=== PATIENT | female | born 1955 | race Caucasian/White ===

== ENCOUNTER 2018-01-13 21:14 | Observation (INO) | payer OTHER ==
[~2018-01-13] VITALS: Ht 167.6 cm; Wt 87.1 kg
[~2018-01-13 21:14] MED LIST: CHOL200021 PO; LEVO100T95 PO; LEVO112T83 PO; LORA-629 PO; OMEG-11 PO; SIMV-49 PO
[2018-01-13] MEDS ORDERED: HYDR-2966 PO (21:20)
--- NOTE | 2018-01-13 21:23 | ER Report ---
History and Physical Time Seen By MD: 21:23 Hx. of Stated Complaint: fell down the stairs, facial trauma HPI/ROS CHIEF COMPLAINT: Facial injury, fall HISTORY OF PRESENT ILLNESS: 62-year-old female fell on the steps coming out of [place]. She face planted on concrete steps. She was wearing glasses. She has a large laceration across the bridge of her nose extending into the right cheek area. Patient denies LOC. Patient denies alcohol ingestion. Patient notes a mild neck pain. Patient denies chest pain, shortness of breath or extremity injury. She has a small abrasion on her left leg and a bruise on her left lange. Patient's last tetanus shot is greater than 10 years. REVIEW OF SYSTEMS: Respiratory: No cough, no dyspnea. Cardiovascular: No chest pain, no palpitations. Gastrointestinal: No vomiting, no abdominal pain. Musculoskeletal: No back pain. Allergies: Coded Allergies: No Known Allergies (Verified Allergy, Mild, 01/13/18) Home Meds Reported Medications Hydrochlorothiazide (HYDROCHLOROTHIAZIDE) 25 Mg Tablet, 1 TAB PO QDAY, TAB 01/13/18 [place]-3 Fatty Acids/Fish Oil (FISH OIL 1,000 MG CAPSULE) 1 Each Capsule, 1 EACH PO QDAY, CAPSULE 07/06/17 Cholecalciferol (Vitamin D3) (VITAMIN D) 2,000 Unit Capsule, 2000 UNIT PO QDAY, CAPSULE 06/13/17 Simvastatin (SIMVASTATIN) 20 Mg Tablet, 20 MG PO HS, TAB 06/13/17 Levothyroxine Sodium (LEVOXYL) 112 Mcg Tablet, 112 MCG PO QDAY, TAB 06/13/17 Discontinued Reported Medications Loratadine (LORATADINE) 10 Mg Tablet, 10 MG PO QDAY 06/13/17 Past Medical/Surgical History Hypertension, hypercholesterolemia, hypothyroidism Reviewed Nurses Notes: Yes Old Medical Records Reviewed: Yes Hx Smoking: No Smoking Status: Never Smoker Constitutional Vital Sign - Last 24 Hours 01/13/18 01/13/18 01/13/18 01/13/18 21:16 21:17 21:29 23:03 Temp 98.0 Pulse 75 72 Resp 18 B/P (MAP) 157/96 157/96 (116) 140/81 (100) Pulse Ox 95 98 O2 Delivery Room Air 01/13/18 01/13/18 01/13/18 01/13/18 23:08 23:23 23:38 23:53 Pulse 86 79 83 82 Pulse Ox 94 96 94 95 01/13/18 23:58 Pulse 86 Pulse Ox 91 Physical Exam General Appearance: The patient is alert, has no immediate need for airway protection and no signs of toxicity. Palpation of the head and neck reveal no tenderness or trauma. There is gross facial trauma across the bridge of the nose. The large contusion and epistaxis. Eyes: Pupils equal and round no pallor or injection. EOMI, PERRLA ENT, Mouth: Mucous membranes are moist. No dental trauma Respiratory: There are no retractions, lungs are clear to auscultation. No chest wall tenderness Cardiovascular: Regular rate and rhythm. Gastrointestinal: Abdomen is soft and non tender, no masses, bowel sounds normal. Neurological: Alert and oriented 3, cranial nerves II through XII intact motor 5/5 imagery intelligence, sensory intact to light touch 4 Skin: Warm and dry, no rashes. Musculoskeletal: Neck is supple non tender. Mild tenderness in the paraspinous musculature, no tenderness in the midline Extremities are nontender, nonswollen and have full range of motion. There is a bruise to the mid lange area and there is a superficial abrasion just below the knee. On the left leg DIFFERENTIAL DIAGNOSIS: After history and physical exam differential diagnosis was considered for fall in the elderly including but not limited to intracranial injury, long bone and pelvic bone fracture, spinal injury, and intrathoracic injury. Medical Decision Making EKG/Imaging Imaging Results: CT scan of the head was obtained. The results of the study are EXAMINATION: Head CT without intravenous contrast History: Fall TECHNIQUE: Contiguous axial images were obtained from the skull base to the vertex without intravenous contrast. One of the following dose optimization techniques was utilized in the performance of this exam: Automated exposure control; adjustment of the mA and/or kV according to the patient's size; or use of an iterative reconstruction technique. Specific details can be referenced in the facility's radiology CT exam operational policy. COMPARISON STUDIES: none FINDINGS: Visualized mastoid air cells / paranasal sinuses: Please see CT facial bones. Calvarium and scalp: negative White matter: negative Dural venous sinuses / arterial structures: negative Ventricles / sulci / fissures: negative Masses / hemorrhage / midline shift: negative Extra-axial spaces: negative IMPRESSION: No evidence of skull fracture or intracranial pathology. Please see CT facial bones for additional findings. The study was read by the radiologist. I viewed the images myself on the PACS system. Results: CT scan of the cervical spine without contrast was obtained. The results of the study are EXAMINATION: Cervical spine CT History: 12 COMPARISON STUDIES: none TECHNIQUE: Axial images were obtained through the cervical spine without IV contrast administration. Coronal and sagittal reformatted images were obtained from the axial source data. One of the following dose optimization techniques was utilized in the performance of this exam: Automated exposure control; adjustment of the mA and/or kV according to the patient's size; or use of an iterative reconstruction technique. Specific details can be referenced in the facility's radiology CT exam operational policy. FINDINGS: Moderately severe degenerative disc space narrowing C5-C6 C6-C7. No evidence of fracture. No vertebral subluxation. Craniocervical junction intact. Paraspinal soft tissues and lung apices negative. IMPRESSION: Cervical spondylosis without evidence of fracture. The study was read by the radiologist. I viewed the images myself on the PACS system. Results: CT scan of the facial bones without contrast was obtained. The results of the study are EXAMINATION: Facial bone CT History: Fall. COMPARISON STUDIES: none TECHNIQUE: Axial images were obtained from the superior aspect of the orbits through the inferior aspect of mandible. Coronal reformatted images were obtained from the axial source data. No IV contrast was administered. One of the following dose optimization techniques was utilized in the performance of this exam: Automated exposure control; adjustment of the mA and/or kV according to the patient's size; or use of an iterative reconstruction technique. Specific details can be referenced in the facility's radiology CT exam operational policy. FINDINGS: Soft Tissues: Nasal soft tissue swelling with subcutaneous air consistent with laceration. Mandible / TMJ: negative Maxillae / pterygoid plates: negative Zygoma / zygomatic arches: negative Orbits: negative Nasal bones / nasal septum: Nondisplaced bilateral nasal bone fractures. Nasal septum appears intact. Sinuses: Mild mucosal thickening left maxillary sinus. Visualized brain: negative IMPRESSION: Nondisplaced bilateral nasal bone fractures. The study was read by the radiologist. I viewed the images myself on the PACS system. ED Course/Re-evaluation ED Course Patient was admitted to an examination room. H&P was done. The differential diagnoses was considered. On clinical examination. Patient has significant facial trauma from falling. CT scans head, neck and facial bones were performed without contrast. She has significant nasal fractures. She has significant nasal laceration. General surgery was contacted for evaluation of the laceration and surgical closure. Patient denies nausea or vomiting to suggest concussion. CAT scans are negative for intracranial injury. The cervical spine CT was negative. Patient was medicated with Zofran and Percocet orally. Laceration repair was performed by Dr. Alejandrina Patino. She was admitted to general surgery for observation overnight. 01/13/2018 10:49:49 pm case discussed with Dr. Alejandrina Patino, general surgery on- call to evaluate the patient for surgical repair of her nose. Decision to Disposition Date: Jan 13, 2018 Decision to Disposition Time: 22:49 Depart Departure Latest Vital Signs Vital Signs Date Time Temp Pulse Resp B/P (MAP) Pulse Ox O2 Delivery O2 Flow Rate FiO2 01/13/18 23:58 86 91 01/13/18 23:03 140/81 (100) 01/13/18 21:16 98.0 18 Room Air Impression: Primary Impression: Fall Additional Impressions: Facial contusion Nasal bone fracture Complex laceration of nose Condition: Improved Disposition: Admitted from ER Problem Qualifiers Primary Impression: Fall Encounter type: initial encounter Qualified Codes: W19.XXXA - Unspecified fall, initial encounter Additional Impressions: Facial contusion Encounter type: initial encounter Qualified Codes: S00.83XA - Contusion of other part of head, initial encounter Nasal bone fracture Encounter type: initial encounter Fracture type: closed Qualified Codes: S02.2XXA - Fracture of nasal bones, initial encounter for closed fracture Complex laceration of nose Encounter type: initial encounter Qualified Codes: S01.21XA - Laceration without foreign body of nose, initial encounter EKATERINA MARCOS DO Jan 13, 2018 21:23
[2018-01-13] MEDS ORDERED: DIPHTH/TETANUS/ACEL. PERTUSSIS IM ONLY ONE (21:30)
[2018-01-13] MEDS ORDERED: ONDANSETRON 4 MG ODT TABDP SL ONE (21:30)
--- NOTE | 2018-01-13 22:27 | RADIOLOGY IMAGING REPORT ---
FACILITY: [facility] PATIENT NAME: Jordyn Giraldo : 1955 MR: [id number] V: [id number] EXAM DATE: ORDERING PHYSICIAN: EKATERINA MARCOS TECHNOLOGIST: [place] [facility] [place] Jordyn Giraldo : 1955 Visit/Account:[id number] Date of Sevice: 01/13/2018 EXAMINATION: Head CT without intravenous contrast History: Fall TECHNIQUE: Contiguous axial images were obtained from the skull base to the vertex without intraven ous contrast. One of the following dose optimization techniques was utilized in the performance of th is exam: Automated exposure control; adjustment of the mA and/or kV according to the patient's size; or use of an iterative reconstruction technique. Specific details can be referenced in the facility 's radiology CT exam operational policy. COMPARISON STUDIES: none FINDINGS: Visualized mastoid air cells / paranasal sinuses: Please see CT facial bones. Calvarium and scalp: negative White matter: negative Dural venous sinuses / arterial structures: negative Ventricles / sulci / fissures: negative Masses / hemorrhage / midline shift: negative Extra-axial spaces: negative IMPRESSION: No evidence of skull fracture or intracranial pathology. Please see CT facial bones for additional fi ndings. Report Dictated By: William Villagomez MD at 01/13/2018 10:22 PM Report E-Signed By: William Villagomez MD at 01/13/2018 10:23 PM [id number]
--- NOTE | 2018-01-13 22:29 | RADIOLOGY IMAGING REPORT ---
FACILITY: [facility] [place] PATIENT NAME: Jordyn Giraldo : 1955 MR: [id number] V: [id number] EXAM DATE: ORDERING PHYSICIAN: EKATERINA MARCOS TECHNOLOGIST: [place] [facility] [place] Patient: Jordyn Giraldo : 1955 Visit/Account:[id number] Date of Sevice: 01/13/2018 EXAMINATION: Cervical spine CT History: 12 COMPARISON STUDIES: none TECHNIQUE: Axial images were obtained through the cervical spine without IV contrast administration. Coronal and sagittal reformatted images were obtained from the axial source data. One of the followi ng dose optimization techniques was utilized in the performance of this exam: Automated exposure cont rol; adjustment of the mA and/or kV according to the patient's size; or use of an iterative reconstr uction technique. Specific details can be referenced in the facility's radiology CT exam operational policy. FINDINGS: Moderately severe degenerative disc space narrowing C5-C6 C6-C7. No evidence of fracture. No vertebra l subluxation. Craniocervical junction intact. Paraspinal soft tissues and lung apices negative. IMPRESSION: Cervical spondylosis without evidence of fracture. Report Dictated By: William Villagomez MD at 01/13/2018 10:23 PM Report E-Signed By: William Villagomez MD at 01/13/2018 10:26 PM WSN:[id number]
--- NOTE | 2018-01-13 22:38 | RADIOLOGY IMAGING REPORT ---
[place] [facility] [place]IENT NAME: Jordyn Giraldo : 1955 MR: [id number] V: [id number] EXAM DATE: ORDERING PHYSICIAN: EKATERINA MARCOS TECHNOLOGIST: Location: [facility] - [place] Patient: Jordyn Giraldo : 1955 Visit/Account:[id number] Date of Sevice: 01/13/2018 EXAMINATION: Facial bone CT History: Fall. COMPARISON STUDIES: none TECHNIQUE: Axial images were obtained from the superior aspect of the orbits through the inferior as pect of mandible. Coronal reformatted images were obtained from the axial source data. No IV contrast was administered. One of the following dose optimization techniques was utilized in the performance of this exam: Automated exposure control; adjustment of the mA and/or kV according to the patient's s ize; or use of an iterative reconstruction technique. Specific details can be referenced [facility] exam operational policy. FINDINGS: Soft Tissues: Nasal soft tissue swelling with subcutaneous air consistent with laceration. Mandible / TMJ: negative Maxillae / pterygoid plates: negative Zygoma / zygomatic arches: negative Orbits: negative Nasal bones / nasal septum: Nondisplaced bilateral nasal bone fractures. Nasal septum appears intact. Sinuses: Mild mucosal thickening left maxillary sinus. Visualized brain: negative IMPRESSION: Nondisplaced bilateral nasal bone fractures. Report Dictated By: William Villagomez MD at 01/13/2018 10:26 PM Report E-Signed By: William Villagomez MD at 01/13/2018 10:34 PM WSN:[id number]
--- NOTE | 2018-01-14 00:13 | Gen Surgery History & Physical ---
History of Present Illness Chief Complaint fall down stairs History of Present Illness 62 yo female walking down stone stairs at her restoration when she tripped and fell onto her face. No LOC, no antecedent symptoms. She was ambulatory at the scene and declined EMS transport. Only complaint is nasal pain and a stuffy nose. No neuro symptoms or other areas of pain. Surgery consulted to repair complex facial laceration. Pt declined transfer to [facility] for Facial Trauma evaluation. History Unable To Obtain Past Medical: PMH reviewed, no IDDM, no immunosuppressives Problems: Home Meds Reported Medications Hydrochlorothiazide (HYDROCHLOROTHIAZIDE) 25 Mg Tablet, 1 TAB PO QDAY, TAB 01/13/18 [place]-3 Fatty Acids/Fish Oil (FISH OIL 1,000 MG CAPSULE) 1 Each Capsule, 1 EACH PO QDAY, CAPSULE 07/06/17 Cholecalciferol (Vitamin D3) (VITAMIN D) 2,000 Unit Capsule, 2000 UNIT PO QDAY, CAPSULE 06/13/17 Simvastatin (SIMVASTATIN) 20 Mg Tablet, 20 MG PO HS, TAB 06/13/17 Levothyroxine Sodium (LEVOXYL) 112 Mcg Tablet, 112 MCG PO QDAY, TAB 06/13/17 Discontinued Reported Medications Loratadine (LORATADINE) 10 Mg Tablet, 10 MG PO QDAY 06/13/17 Allergies: Coded Allergies: No Known Allergies (Verified Allergy, Mild, 01/13/18) Review of Systems All Systems Reviewed/Normal: Yes, Except as Noted ENT: Other (see HPI) Exam General Appearance: Alert, Awake, No Acute Distress, Afebrile Neuro: No Gross deficits, Other (GCS 15, NICOLAS, PERRL) ENT: Moist Mucous Membranes, External Auditory Canals Clear, Other (complex deep stellate laceration from right nasolabial area across the lower nose to left nasolabial with significant tissue loss 8 cm length X1 cm depth) Neck: No Masses, Other (full AROM, non-tender, no step-offs) Cardiovascular: Normal Rhythm & Peripheral Pulses, Regular Rate and Rhythm, No Edema, No JVD Respiratory: No Respiratory Distress, Clear to Auscultation, Other (= BS bilat) GI: Abd Soft and Non-Tender : No CVA Tenderness Lymph: No Adenopathy Musculoskeletal: No Weakness/Pain Extremities: Soft and Non Tender, Warm, Pulses, Perfused, Other (CMS intact X4) Integumentary: Skin Intact without Lesion / Mass, Other (superficial abrasion left 4th digit) Psych: Alert & Oriented X3, Appropriate Mood & Affect Medical Decision Making EKG / Imaging Monitor Interpretation: Normal Sinus Rhythm Pre-Admit Course Medical Record Review: Yes Assessment and Plan Problems: (1) Facial laceration Status: Acute Assessment & Plan: 62 yo female with complex laceration with significant soft tissue loss and underlying nasal bone fracture. Pt offered transfer tonight to [facility], which she declined. She verbalizes understanding she may require additional operative procedures for reconstruction, may have significant scar/ deformity. She will be referred to Dr Mike Michelle Plastic surgeon for outpt follow up this week [phone] in [place]. Pt will need repeat tertiary survey in the am once distracting injuries controlled to rule out occult injury. She will be admitted overnight for observation as she lives alone. Time Spent: > 30 min Critical Time Spent: 1st 30-74 Minutes, Additional 30 Minutes Venous Thromboembolism VTE Risk Physician Assess for VTE Risk: Yes Patient's VTE Risk: Low VTE Diagnostic Test 2 Days Prior to Admit: No Antithrombotics Is Pt On Any Antithrombotics?: No Prophylaxis Tx Contraindicated Pharmacological Contraindicati: Active Bleeding Mechanical Contraindications: Pt at Low Risk for VTE Problem Qualifiers (1) Facial laceration: Encounter type: initial encounter Qualified Codes: S01.81XA - Laceration without foreign body of other part of head, initial encounter RIC BSAHIR MD Jan 14, 2018 00:13
--- NOTE | 2018-01-14 00:16 | Post Operative Progress Note ---
Post Operative Progress Note Date: Jan 14, 2018 Time: 00:14 Surgeon: Ric Patino MD Dependency Director: none Anesthesia: Local 1% Lidocaine without Epinephrine 20 ml Pre-Op Diagnosis: complex stellate facial laceration Post-Op Diagnosis: same Findings: 8 X 1 cm with significant soft tissue loss Procedure(s): 1. layered repair facial laceration 8 cm Specimen Removed:(May be N/A): NA Complications: none Total Tourniquet Time: NA Splint: NA Fluids: NA Estimated Blood Loss: < 10 ml Date OP Note Dictated: Jan 14, 2018 Time OP Note Dictated: 00:16 RIC PATINO MD Jan 14, 2018 00:16
[2018-01-14] MEDS ORDERED: KCL/D1/2NS 20 MEQ 1000 ML 1,000 ML IV PRN (00:18)
[2018-01-14] MEDS: BACITRACIN OINT 0.9 GM PKT TP SCH ×2 (00:20→08:24)
[2018-01-14] MEDS ORDERED: ONDANSETRON 4 MG/2 ML VIAL IVP PRN (00:20)
[2018-01-14] MEDS ORDERED: ceFAZolin(*) 2GM/D5W 50ML 50 ML IVPB ONE (00:20)
[2018-01-14] MEDS ORDERED: NALOXONE HCL 0.4 MG/ML VIAL IVP PRN (00:20)
[2018-01-14 01:24] VITALS: BP 120/71
[2018-01-14] MEDS: ACETAMINOPHEN 325 MG TAB PO PRN ×2 (01:40→08:19)
[2018-01-14 07:27] VITALS: BP 124/66
--- NOTE | 2018-01-14 08:22 | Short(Outpt) Discharge Summary ---
Discharge Summary Reason for Hosp/Final Diag: (1) Facial laceration Status: Acute Hospital Course & Plan: 62 yo female with complex laceration with significant soft tissue loss and underlying nasal bone fracture. Pt offered transfer tonight to Trauma Center, which she declined. She verbalizes understanding she may require additional operative procedures for reconstruction, may have significant scar/deformity. She will be referred to Dr Mike Michelle Plastic surgeon for outpt follow up this week [phone] in [place]. Pt will need repeat tertiary survey in the am once distracting injuries controlled to rule out occult injury. She will be admitted overnight for observation as she lives alone. 01/14/18: Doing well. Will d/c to home. Spoke with Dr. Hoang with ENT, he will see her in his office tomorrow. Departure Discharge to: Home, Self Care Discharge Instructions Home Meds Reported Medications Hydrochlorothiazide (HYDROCHLOROTHIAZIDE) 25 Mg Tablet, 1 TAB PO QDAY, TAB 01/13/18 [place]-3 Fatty Acids/Fish Oil (FISH OIL 1,000 MG CAPSULE) 1 Each Capsule, 1 EACH PO QDAY, CAPSULE 07/06/17 Cholecalciferol (Vitamin D3) (VITAMIN D) 2,000 Unit Capsule, 2000 UNIT PO QDAY, CAPSULE 06/13/17 Simvastatin (SIMVASTATIN) 20 Mg Tablet, 20 MG PO HS, TAB 06/13/17 Levothyroxine Sodium (LEVOXYL) 112 Mcg Tablet, 112 MCG PO QDAY, TAB 06/13/17 Discontinued Reported Medications Loratadine (LORATADINE) 10 Mg Tablet, 10 MG PO QDAY 06/13/17 Follow up Referrals: Otolaryngology - 01/15/18 @ [facility] with Pablo Hoang Jr, Md Diet: Regular Activity: As Tolerated Special Instructions: You can shower as desired but don't scrub the areas where the stitches are. Just let the soap/shampoo and water run over the area and you can lightly rub your hands over these areas without much pressure. Reapply antibiotic ointment, which you can purchase over the counter, to the areas with the sutures. Use neosporin, bacitracin, or triple antibiotic ointment, any of these are acceptable. Follow up with Dr. Hoang with ENT tomorrow and you should have an appointment set up before going home. Problem Qualifiers (1) Facial laceration: Encounter type: initial encounter Qualified Codes: S01.81XA - Laceration without foreign body of other part of head, initial encounter BREN AARON MD Jan 14, 2018 08:22
--- NOTE | 2018-01-15 10:24 | OPERATIVE REPORT 1 ---
EVENT DATE: January 14, 2018 SURGEON: Alejandrina Patino MD, [facility] ANESTHESIA: 30 mL 1% lidocaine without epinephrine. PREOPERATIVE DIAGNOSIS Complex stellate facial laceration status post fall down stairs. POSTOPERATIVE DIAGNOSIS Complex stellate facial laceration status post fall down stairs. PROCEDURE PERFORMED Complex layered repair of 8 cm facial laceration. INDICATIONS FOR OPERATION This patient is a 62-year-old female who sustained a fall down cement stairs, sustaining complex laceration with significant soft tissue loss with underlying bilateral nasal fractures. FINDINGS At the time of operation, the patient had significant skin flap involving the entire lower half of her nose with underlying exposed cartilage and deep soft tissue laceration involving both nasolabial folds extending 8 cm in length with a depth of 1 cm. DETAILS OF PROCEDURE On January 14, 2018, patient's laceration was copiously irrigated with approximately 1 liter of sterile saline. Tetanus status was updated. The wound was infiltrated with local anesthetic, as stated above. The subcutaneous tissues were reapproximated with simple interrupted buried 3-0 Vicryl sutures. The skin edges were then reapproximated with multiple simple interrupted 4-0 Prolene sutures. This did allow for excellent reapproximation of the involved tissue. Patient is aware there is soft tissue loss across the entire incision, thus she will have moderate to severe scarring and deformity. Patient tolerated the procedure well. Her cardiorespiratory status was monitored throughout the procedure. Wound was then cleaned and dressed with bacitracin. She tolerated the procedure well. Final sponge and needle count correct x 2. MTDD
[2018-01-16] MEDS ORDERED: LORA-629 PO (09:49)
[2018-01-17] MEDS ORDERED: LISI-353 PO (14:12)
== END 2018-01-14 08:16 | disposition home or self-care (01) ==
LOC: ER 21:27 → MED 01-14 00:01
PROVIDERS: ADMIT Surgery; ATTEND Surgery
DX: S02.2XXA Fracture of nasal bones, initial encounter for closed fracture (principal); S00.83XA Contusion of other part of head, initial encounter; S01.21XA Laceration without foreign body of nose, initial encounter; W10.9XXA Fall (on) (from) unspecified stairs and steps, initial encounter
CPT/HCPCS: 12054; 70450; 70486; 72125; 90471; 90715; 99285; C9399; G0378; J3480; S0119; J0690

== ENCOUNTER → 2018-01-15 | Outpatient (CLI) | payer OTHER ==
[~2018-01-15] MED LIST changes: +HYDR-2966 PO
--- NOTE | 2018-01-15 10:32 | EKG ---
FACILITY: [facility] PATIENT NAME: DEANNE AYOUB : [id number] MR: [id number] V: [id number] EXAM DATE: ORDERING PHYSICIAN: MUKUND FLOWERS TECHNOLOGIST: FRANDY Test Reason : PREOP-NOSE Blood Pressure : / mmHG Vent. Rate : 056 BPM Atrial Rate : 056 BPM P-R Int : 192 ms QRS Dur : 092 ms QT Int : 406 ms P-R-T Axes : 059 009 050 degrees QTc Int : 391 ms Sinus bradycardia Otherwise normal ECG No previous ECGs available Referred By: KRISTIE Confirmed By:
== END ==
LOC: LAB 09:41
PROVIDERS: ATTEND Otolaryngology
DX: Z01.818 Encounter for other preprocedural examination (principal); R00.1 Bradycardia, unspecified; I10 Essential (primary) hypertension
CPT/HCPCS: 36415; 82040; 82247; 82310; 82374; 82435; 82565; 82947; 84075; 84132; 84155; 84295; 84450; 84460; 84520; 93005

== ENCOUNTER 2018-01-21 02:32 | Day surgery (SDC) | payer OTHER ==
[~2018-01-21] VITALS: Ht 167.6 cm; Wt 86.2 kg
[~2018-01-21 02:32] MED LIST changes: +LISI-353 PO
[2018-01-21 10:27] VITALS: BP 120/66
[2018-01-21] MEDS ORDERED: MIDAZOLAM 2 MG/2 ML VIAL IVP PRN (10:40)
[2018-01-21] MEDS ORDERED: ceFAZolin(*) 2GM/D5W 50ML 50 ML IVPB ONE (10:40)
[2018-01-21] MEDS ORDERED: LIDOCAINE/SOD BICARB 8.4% SYR ID ONE (10:40)
[2018-01-21] MEDS ORDERED: FAMOTIDINE 20 MG TAB PO ONE (10:40)
[2018-01-21] MEDS ORDERED: NORMOSOL R SOLN(*) 1000 ML BAG 1,000 ML IV PRN (10:40)
[2018-01-21] MEDS ORDERED: OXYMETAZOLINE SPRAY 15 ML BTL ONE (11:11)
[2018-01-21] MEDS ORDERED: BACITRACIN OINT 15 GM TUBE TP ONE (11:11)
[2018-01-21] MEDS ORDERED: DEXAMETHASONE SOD PHOS 10MG/ML ONE (12:03)
[2018-01-21] MEDS ORDERED: ONDANSETRON 4 MG/2 ML VIAL ONE (12:03)
[2018-01-21] MEDS ORDERED: PROPOFOL EMUL(*) 10MG/ML 20 ML 40 ML ONE (12:03)
[2018-01-21] MEDS ORDERED: fentaNYL CITR 100 MCG/2 ML AMP ONE (12:41)
[2018-01-21] MEDS ORDERED: CEFU500T10 PO (13:17)
[2018-01-21] MEDS ORDERED: HYDR-4309 PO (13:18)
[2018-01-21] MEDS ORDERED: APAP/HYDROCODONE 325/5 TAB ONE (13:19)
[2018-01-21 13:39] VITALS: BP 154/70
[2018-01-21 14:07] VITALS: BP 151/76
[2018-01-21 14:08] VITALS: BP 152/97
--- NOTE | 2018-01-22 13:06 | OPERATIVE REPORT 1 ---
EVENT DATE: January 21, 2018 SURGEON: Pablo Hoang MD ANESTHESIOLOGIST: Lukasz Godinez MD ANESTHESIA: LMA PROCEDURE Closed reduction of septal fracture. PREOPERATIVE DIAGNOSIS Nasal septal fracture. POSTOPERATIVE DIAGNOSIS Nasal septal fracture. INDICATIONS Please refer to the preoperative note. DESCRIPTION OF PROCEDURE The patient was positively identified in the preoperative area. She was there alone. Risks were again explained, including but not limited to bleeding, infection, and those associated with anesthesia. She acknowledged understanding of those risks. She was then brought back to the operative suite , laid supine on the operative table and anesthesia was administered. Once asleep, the patient was positioned, then prepped and draped in usual sterile fashion. The patient was noted to have a nasal septal fracture to the right, nearly completely obstructing her right nasal vestibule. This was reduced. Bilateral nasal septal splints were placed and secured to the columella with a suture. The patient was then turned to anesthesia for emergence. ESTIMATED BLOOD LOSS 10 mL. COMPLICATIONS No complications. MTDD
== END 2018-01-21 13:39 | disposition home or self-care (01) ==
LOC: OR 02:32
PROVIDERS: ATTEND Otolaryngology
DX: S02.2XXA Fracture of nasal bones, initial encounter for closed fracture (principal)
CPT/HCPCS: 21315; J1100; J2405; J2704; J3010; J0690

== ENCOUNTER → 2018-01-29 | Outpatient (CLI) | payer OTHER ==
[~2018-01-29] MED LIST changes: +CEFU500T10 PO; +HYDR-4309 PO
--- NOTE | 2018-01-29 15:48 | RADIOLOGY IMAGING REPORT ---
FACILITY: [facility] PATIENT NAME: Jordyn Giraldo : 1955 MR: [id number] V: [id number] EXAM DATE: ORDERING PHYSICIAN: RADHA MELÉNDEZ [place]CHNOLOG[place]: [place] [facility] [place] Jordyn Giraldo : 1955 Visit/Account:[id number] Date of Sevice: 01/29/2018 Technique: Multiple grayscale, color and Doppler sonographic images were obtained for carotid ultraso und. Indication: Frequent falls Comparison:None available Findings: On the right : Peak systolic velocity of the right common carotid artery is 118 cm/s Peak systolic velocity of the right internal carotid artery is 86 cm/s There is normal antegrade flow of the right vertebral artery. The right ICA/CCA ratio is 0.9 On the left: Peak systolic velocity of the left common carotid artery is 131 cm/s Peak systolic velocity of the left internal carotid artery is 105 cm/s There is normal antegrade flow of the left vertebral artery. The left ICA/CCA ratio is 1.0 IMPRESSION: 1. No hemodynamically significant stenosis of the bilateral common carotid arteries and bilateral int ernal carotid arteries as above. Velocity criteria are extrapolated from diameter data as defined by the Society of Radiologists in [employer]ound Consensus Conference Radiology 2003; 229;340-346 Report Dictated By: Ivan Caro DO at 01/29/2018 3:42 PM Report E-Signed By: Ivan Caro DO at 01/29/2018 3:45 PM WSN:[email or web address]
--- NOTE | 2018-01-30 09:19 | RADIOLOGY IMAGING REPORT ---
FACILITY: [facility] PATIENT NAME: DEANNE AYOUB : [id number] MR: [id number] V: [id number] EXAM DATE: ORDERING PHYSICIAN: RADHA MELÉNDEZ TECHNOLOGIST: Tay Rucker EXAMINATION:TWO-DIMENSIONAL ECHOCARDIOGRAPH REASON:FREQUENT FALLS 2D Measurements (normal values in centimeters) LV endLV endRV endVent.LV PostAorticLeftPercent DiastolicSystolicDiastolicSeptumWallRootAtriumShortening (3.5-5.7)(0.9-2.6)(0.6-1.1)(0.6-1.1)(2.0-3.7)(1.9-4.0)(25-35%) [id number]% STROKE VOLUME: 77ml ESTIMATED EJECTION FRACTION:65% PARASTERNAL LONG AXIS: Overall left ventricular systolic function appears to be normal. Chamber sizes appear to be normal except the right ventricle is borderline enlarged. The aortic root is the upper range of normal in size at 3.7cm. Color examination of the valves reveals a trace of mitral insufficiency & a mild amount of tricuspid insufficiency. Color examination of the aortic valve was unremarkable. PARASTERNAL SHORT AXIS: Overall left ventricular function appears to be normal. No specific wall motion abnormalities are noted. Aortic valve is trileaflet in configuration & appears to open normally. Pulmonic valve was not well seen. The tricuspid valve appears to open normally. There is a mild amount of pulmonic insufficiency & a mild amount of tricuspid insufficiency present. APICAL FOUR AND TWO CHAMBER: Normal left ventricular ejection fraction. Normal chamber sizes. Aortic valve area was measured within normal ranges at 2.4cm2. Mitral valve area measured within normal ranges at 3.3cm2. The tricuspid regurgitation Vmax measured at 2.74m/sec. Estimated right atrial pressure was 3mm Hg. Left atrial & right atrial volumes are measured within normal ranges at 21 7 14ml/m2 respectively. SUBCOSTAL VIEW: View was difficult but no pericardial effusion was noted. Doppler examination of the mitral valve in diastole does reveal the A wave > E wave. OVERALL IMPRESSION: 1. Normal left ventricular ejection fraction of approximately 65% with a Grade 1 mild decrease in diastolic function. 2. Normal chamber sizes with the right ventricle being the upper range of normal in size & the aortic root also being upper range of normal in size. 3. A trileaflet aortic valve with no abnormalities noted. 4. There is a mild amount of mitral & pulmonic insufficiency & tricuspid insufficiency. Estimated right ventricular systolic pressures are within normal ranges at 33mm Hg. 5. No left ventricular thickening was noted. Dictated by: Candace Arcos M.D. on 01/29/2018 at 18:02 Transcribed by: LOUISE on 01/30/2018 at 7:02 Approved by: Candace Arcos M.D. on 01/30/2018 at 9:17 [facility]
--- NOTE | 2018-01-30 11:45 | RADIOLOGY IMAGING REPORT ---
FACILITY: [facility] - [place] PATIENT NAME: DEANNE AYOUB : [id number] MR: [id number] V: [id number] EXAM DATE: ORDERING PHYSICIAN: RADHA MELÉNDEZ TECHNOLOGIST: Sparkle Francis PROCEDURE:BILATERAL DIGITAL SCREENING MAMMOGRAM WITH CAD ASSISTED INTERPRETATION & 3D TOMOSYNTHESIS COMPARISON:Prior mammograms 12/22/16, 12/17/15, 10/29/14, 10/28/13, 10/24/12, 10/17/11. INDICATIONS:SCREENING FINDINGS: A small amount of fibroglandular tissue is seen throughout the breasts. The parenchymal pattern has remained stable allowing for difference in mammographic technique & patient positioning. There is no evidence of malignant appearing mass, malignant appearing calcifications or other secondary sign of malignancy in either breast. DIAGNOSTIC CATEGORY 1--NEGATIVE. RECOMMENDATIONS: ROUTINE MAMMOGRAM AND CLINICAL EVALUATION. IMPRESSION: BIRADS 1: Negative No significant abnormality is seen. Dictated by: Nathalia Burkett M.D. on 01/29/2018 at 15:30 Transcribed by: DUKE on 01/29/2018 at 15:39 Approved by: Nathalia Burkett M.D. on 01/30/2018 at 11:44 [facility]
== END ==
LOC: MAMO 00:37
PROVIDERS: ATTEND Physician Assistant
DX: Z12.31 Encounter for screening mammogram for malignant neoplasm of breast (principal); I50.30 Unspecified diastolic (congestive) heart failure; I34.0 Nonrheumatic mitral (valve) insufficiency; I07.1 Rheumatic tricuspid insufficiency; I37.1 Nonrheumatic pulmonary valve insufficiency; I10 Essential (primary) hypertension; R29.898 Other symptoms and signs involving the musculoskeletal system
CPT/HCPCS: 77063; 77067; 93306; 93880

== ENCOUNTER → 2019-02-10 | Outpatient (CLI) | payer OTHER ==
[~2019-02-10] MED LIST changes: -HYDR-4309 PO; +HYDR-653 PO; +MUPI22OI28 TP
== END ==
LOC: RESP 07:20
PROVIDERS: ATTEND Nurse Practitioner Family
DX: G47.33 Obstructive sleep apnea (adult) (pediatric) (principal)

== ENCOUNTER → 2019-03-21 | Outpatient (CLI) | payer OTHER ==
[~2019-03-21] MED LIST changes: +CEFPR500PT PO; +ELUX75TA PO; +METH4TAB66 PO; +MUPI1OIN2
--- NOTE | 2019-03-24 13:48 | RADIOLOGY IMAGING REPORT ---
FACILITY: [facility] - [place] PATIENT NAME: DEANNE AYOUB : [id number] MR: [id number] V: [id number] EXAM DATE: [id number] ORDERING PHYSICIAN: CONCEPCION WHARTON TECHNOLOGIST: Anatsasia Amezquita PROCEDURE: BILATERAL DIGITAL SCREENING MAMMOGRAM WITH CAD ASSISTED INTERPRETATION & 3D TOMOSYNTHESIS REASON FOR STUDY: Screening. VIEWS OBTAINED: 2D & 3D full field CC & MLO. BREAST DENSITY: There are scattered areas of fibroglandular density. MAMMOGRAM FINDINGS: There is no suspicious mass, calcification, or architectural distortion. IMPRESSION: BIRADS 1: Negative. DIAGNOSTIC CATEGORY 1--NEGATIVE. RECOMMENDATIONS: ROUTINE MAMMOGRAM AND CLINICAL EVALUATION. Dictated by: Chad Mayes M.D. on 03/24/2019 at 8:36 Transcribed by: DUKE on 03/24/2019 at 9:38 Approved by: Chad Mayes M.D. on 03/24/2019 at 13:46 [facility]
== END ==
LOC: MAMO 01:38
PROVIDERS: ATTEND Nurse Practitioner Family
DX: Z12.31 Encounter for screening mammogram for malignant neoplasm of breast (principal); Z80.3 Family history of malignant neoplasm of breast
CPT/HCPCS: 77063; 77067